=== PATIENT | male | born 1975 | race African-American/Black ===

== ENCOUNTER 2019-03-20 16:56 | Emergency (ER) | payer OTHER, MEDICAID ==
[~2019-03-20] VITALS: Ht 175.3 cm; Wt 75.0 kg
[~2019-03-20 16:56] MED LIST: METO-411 PO; QUET400T PO; SERT100T PO; SERT50TA PO
[2019-03-20] MEDS ORDERED: SODIUM CHLORIDE 0.9% 1,000 ML IV ONE (17:52)
[2019-03-20] MEDS ORDERED: OLANZAPINE 10 MG/VIAL IM ONE (18:00)
[2019-03-20] MEDS ORDERED: LORAZEPAM 2MG/ML CPJ IM ONE ×2 (18:00→22:15)
[2019-03-20 18:01] LABS: HEMATOCRIT. 36.1 % (42.0-52.0); HEMOGLOBIN. 12.2 g/dL (14.0-18.0); MEAN CORPUSCULAR HEMOGLOBIN 33.2 pg (28.0-32.0); MEAN CORPUSCULAR VOLUME 97.9 fL (80.0-94.0); PLATELET 243 x1000/uL (130-400); RED BLOOD CELL COUNT 3.69 mill/uL (4.7-6.1); RED CELL DISTRIBUTION WIDTH 16.5 % (11.6-14.6)
[2019-03-20 18:05] LABS: CHLORIDE 99 mEq/L (98-107)
[2019-03-20 18:23] LABS: PLATELET ESTIMATE NORMAL
[2019-03-20 18:37] LABS: ETHANOL BLOOD 323 mg/dL
[2019-03-20 19:05] LABS: CLARITY URINE CLEAR (CLEAR); COLOR URINE YELLOW (YELLOW); KETONES URINE NEGATIVE (NEGATIVE); LEUKOCYTE ESTERASE URINE NEGATIVE (NEGATIVE); NITRITE URINE NEGATIVE (NEGATIVE); OCCULT BLOOD URINE NEGATIVE (NEGATIVE); PH URINE 5.5 (4.5-8.0); PROTEIN URINE NEGATIVE (NEGATIVE); SPECIFIC GRAVITY URINE 1.005 (1.005-1.030); UROBILINOGEN URINE 0.2 E.U./dL (0.2-1.0)
[2019-03-20 19:18] LABS: *AMPHETAMINES SCREEN URINE NEGATIVE (NEGATIVE); *BARBITURATES SCREEN URINE NEGATIVE (NEGATIVE); *BENZODIAZEPINES SCREEN URINE NEGATIVE (NEGATIVE); *COCAINE SCREEN URINE NEGATIVE (NEGATIVE); METHADONE URINE SCREEN NEGATIVE (NEGATIVE); PHENCYCLIDINE URINE SCREEN NEGATIVE (NEGATIVE)
[2019-03-20 19:19] LABS: CANNABINOID URINE SCREEN NEGATIVE (NEGATIVE); OPIATES URINE SCREEN NEGATIVE (NEGATIVE)
[2019-03-21] MEDS ORDERED: LORAZEPAM 1MG TABLET PO ONE (02:15)
[2019-03-21] MEDS: QUETIAPINE FUMARATE 50MG TABLET PO SCH ×2 (02:40→09:29)
[2019-03-21 14:24] VITALS: BP 120/85
== END 2019-03-21 14:44 | disposition home or self-care (01) ==
LOC: ER 17:21
DX: T51.0X1A Toxic effect of ethanol, accidental (unintentional), initial encounter (principal); G92 Toxic encephalopathy; R45.851 Suicidal ideations; F29 Unspecified psychosis not due to a substance or known physiological condition; R41.82 Altered mental status, unspecified; F41.9 Anxiety disorder, unspecified; I10 Essential (primary) hypertension; F20.9 Schizophrenia, unspecified; F14.10 Cocaine abuse, uncomplicated; F12.10 Cannabis abuse, uncomplicated; Z79.899 Other long term (current) drug therapy; Z59.0 Homelessness; Y92.89 Other specified places as the place of occurrence of the external cause
CPT/HCPCS: 36415; 80053; 80305; 80307; 80320; 81003; 82550; 82553; 83690; 84443; 85025; 93005; 96372; 99284; J2060; J3490; J7030; G0480

== ENCOUNTER 2021-11-16 10:33 | Emergency (ER) | payer OTHER, MEDICAID ==
[~2021-11-16] VITALS: Ht 172.7 cm; Wt 75.0 kg
[2021-11-16 10:35] VITALS: BP 114/76
[2021-11-16 12:41] LABS: BASOPHILS % 0.8 % (0.0-2.0); EOSINOPHILS % 0.2 % (0.0-5.0); HEMATOCRIT. 40.6 % (42.0-52.0); HEMOGLOBIN. 13.9 g/dL (14.0-18.0); LYMPHOCYTES % 32.2 % (20.0-50.0); MEAN CORPUSCULAR VOLUME 102.4 fL (80.0-94.0); MEAN PLATELET VOLUME 7.4 fl (7.4-10.4); MONOCYTES % 8.8 % (2.0-8.0); PLATELET 319 x1000/uL (130-400); RED BLOOD CELL COUNT 3.96 mill/uL (4.7-6.1); RED CELL DISTRIBUTION WIDTH 13.6 % (11.6-14.6)
[2021-11-16 12:50] LABS: CHLORIDE 105 mEq/L (98-107)
[2021-11-16 13:10] LABS: ETHANOL BLOOD 468 mg/dL
== END 2021-11-16 13:44 | disposition home or self-care (01) ==
LOC: ER 10:33
DX: F10.129 Alcohol abuse with intoxication, unspecified (principal); I10 Essential (primary) hypertension; Z86.59 Personal history of other mental and behavioral disorders; Y90.8 Blood alcohol level of 240 mg/100 ml or more
CPT/HCPCS: 36415; 80053; 80307; 80320; 80329; 85025; 99283; G0480